=== PATIENT | male | born 1975 | race Hispanic/Latino ===

== ENCOUNTER 2023-11-17 20:37 | Emergency (ER) | payer OTHER ==
[~2023-11-17] VITALS: Ht 175.3 cm; Wt 70.8 kg
[2023-11-17 20:47] VITALS: BP 142/90; PULSE 73; RESP 18
== END 2023-11-18 02:44 | disposition left against medical advice (07) ==
LOC: EDH 20:37
DX: S01.81XA Laceration without foreign body of other part of head, initial encounter (principal); Z53.21 Procedure and treatment not carried out due to patient leaving prior to being seen by health care provider; X58.XXXA Exposure to other specified factors, initial encounter; Y93.89 Activity, other specified; Y92.89 Other specified places as the place of occurrence of the external cause; Y99.8 Other external cause status
CPT/HCPCS: 99281

== ENCOUNTER 2024-04-19 23:25 | Emergency (ER) | payer BC, OTHER ==
[~2024-04-19] VITALS: Ht 175.3 cm; Wt 67.1 kg
[2024-04-20 00:16] LABS: BILIRUBIN,URINE NEGATIVE (NEGATIVE); COLOR,URINE LIGHT-ORANGE (YELLOW); GLUCOSE, URINE (UA) NEGATIVE (NEGATIVE); KETONES,URINE 5 mg/dL (NEGATIVE); LEUKOCYTE ESTERASE ,URINE 500 Leu/uL (NEGATIVE); NITRATE,URINE 2+ (NEGATIVE); OCCULT BLOOD,URINE LARGE (NEGATIVE); PROTEIN,URINE 200 mg/dL (NEGATIVE); UROBILINOGEN,URINE 0.2 mg/dL (0.2-1.0)
[2024-04-20 00:27] LABS: APPEARANCE,URINE CLOUDY (CLEAR)
[2024-04-20 00:30] LABS: BACTERIA,URINE MOD /HPF (None Seen); MUCUS,URINE RARE LPF (None Seen); NON-SQUAMOUS EPITHELIAL CELL 8 /HPF (0-2); RBC,URINE TNTC /HPF (0-1); SQUAMOUS EPITHELIAL CELL,UR RARE /HPF (0-2); WBC,URINE TNTC /HPF (0-1)
[2024-04-20] MEDS ORDERED: PRED10TA23 PO (00:42)
[2024-04-20] MEDS ORDERED: LEVO750T68 PO (00:42)
[2024-04-20] MEDS ORDERED: NAPR375T6 PO (00:42)
[2024-04-20] MEDS: KETOROLAC 30MG VIAL (30MG/ML) IM ONE (01:22)
[2024-04-20 01:50] VITALS: BP 140/88; PULSE 92; RESP 16; O2SAT 99
== END 2024-04-20 01:55 | disposition home or self-care (01) ==
LOC: EDH 23:25
DX: N45.3 Epididymo-orchitis (principal); F41.9 Anxiety disorder, unspecified; F32.A Depression, unspecified; F20.9 Schizophrenia, unspecified; Z79.899 Other long term (current) drug therapy
CPT/HCPCS: 99284; 87077; 87088; 87186; 81001 ×2; 76870; 96372; J1885; 96374

== ENCOUNTER 2024-04-25 10:30 | Emergency (ER) | payer BC ==
[~2024-04-25] VITALS: Ht 175.3 cm; Wt 66.2 kg
[~2024-04-25 10:30] MED LIST: LEVO750T68 PO; NAPR375T6 PO; PRED10TA23 PO
[2024-04-25 10:35] VITALS: BP 116/81; PULSE 70; RESP 16
[2024-04-25 11:24] LABS: BASOPHILS # (AUTO) 0.04 K/uL (0.00-0.20); BASOPHILS % (AUTO) 0.4 % (0.0-5.0); EOSINOPHILS # (AUTO) 0.02 K/uL (0.00-0.70); EOSINOPHILS % (AUTO) 0.2 % (0.0-8.0); HEMATOCRIT 38.3 % (42-54); IMMATURE GRANULOCYTE ABSOLUTE 0.05 K/uL (0-1); LYMPHOCYTES # (AUTO) 1.2 K/uL (1.0-4.8); LYMPHOCYTES % (AUTO) 10.2 % (21.0-51.0); MEAN CORPUSCULAR HEMOGLOBIN 32.4 pg (27.0-33.0); MEAN CORPUSCULAR HGB CONC 34.7 g/dL (32.0-36.0); MEAN CORPUSCULAR VOLUME 93.4 fL (79-99); MONOCYTES # (AUTO) 1.1 K/uL (0.1-1.0); MONOCYTES % (AUTO) 9.3 % (3.0-13.0); NEUTROPHILS % (AUTO) 79.5 % (40.0-77.0); PLATELET COUNT (AUTO) 335 K/uL (130-400); RED CELL DISTRIBUTION WIDTH 12.5 % (11.0-15.5); WHITE BLOOD COUNT (AUTO) 11.3 K/uL (4.8-10.8)
[2024-04-25 11:34] LABS: CREATININE 0.7 mg/dL (0.5-1.3); POTASSIUM 3.9 mmol/L (3.5-5.1)
[2024-04-25] MEDS: KETOROLAC 60 MG VIAL (30MG/ML) IM ONE (12:15)
== END 2024-04-25 12:21 | disposition home or self-care (01) ==
LOC: EDH 10:30
DX: N45.3 Epididymo-orchitis (principal); F41.9 Anxiety disorder, unspecified; F20.9 Schizophrenia, unspecified
CPT/HCPCS: 99284; 80048; 85025; 36415; 96372; J1885

== ENCOUNTER 2024-05-15 08:52 | Emergency (ER) | payer BC ==
[~2024-05-15] VITALS: Ht 175.3 cm; Wt 72.6 kg
[2024-05-15] MEDS: DEXAMETHASONE SOD PHOSPHATE 4 MG/ML 1ML VIAL IVP ONE (09:36)
[2024-05-15] MEDS: ONDANSETRON 4MG INJ IV ONE (09:36)
[2024-05-15] MEDS: 0.9%NACL 1000ML 1,000 ML IV ONE (09:36)
[2024-05-15 09:37] LABS: APPEARANCE,URINE CLEAR (CLEAR); BILIRUBIN,URINE NEGATIVE (NEGATIVE); COLOR,URINE YELLOW (YELLOW); GLUCOSE, URINE (UA) NEGATIVE (NEGATIVE); KETONES,URINE NEGATIVE (NEGATIVE); LEUKOCYTE ESTERASE ,URINE 250 Leu/uL (NEGATIVE); NITRATE,URINE NEGATIVE (NEGATIVE); OCCULT BLOOD,URINE NEGATIVE (NEGATIVE); PROTEIN,URINE 20 mg/dL (NEGATIVE)
[2024-05-15] MEDS: MORPHINE 4 MG SYG IVP ONE (09:37)
[2024-05-15 09:40] LABS: BACTERIA,URINE RARE /HPF (None Seen); MUCUS,URINE RARE LPF (None Seen); SQUAMOUS EPITHELIAL CELL,UR RARE /HPF (0-2); WBC,URINE 51-100 /HPF (0-1)
[2024-05-15 09:42] LABS: AMPHET/METH SCREEN,URINE NEGATIVE (NEGATIVE); BARBITURATE SCREEN, URINE NEGATIVE (NEGATIVE); BENZODIAZEPINES SCREEN,URINE NEGATIVE (NEGATIVE); CANNABINOID SCREEN,URINE NEGATIVE (NEGATIVE); COCAINE SCREEN,URINE POSITIVE (NEGATIVE); OPIATE SCREEN,URINE NEGATIVE (NEGATIVE); PHENCYCLIDINE SCREEN,URINE NEGATIVE (NEGATIVE)
[2024-05-15 09:59] LABS: BASOPHILS # (AUTO) 0.05 K/uL (0.00-0.20); BASOPHILS % (AUTO) 0.9 % (0.0-5.0); EOSINOPHILS # (AUTO) 0.02 K/uL (0.00-0.70); EOSINOPHILS % (AUTO) 0.3 % (0.0-8.0); HEMATOCRIT 34.3 % (42-54); IMMATURE GRANULOCYTE ABSOLUTE 0.01 K/uL (0-1); LYMPHOCYTES # (AUTO) 2.1 K/uL (1.0-4.8); LYMPHOCYTES % (AUTO) 36.4 % (21.0-51.0); MEAN CORPUSCULAR HEMOGLOBIN 32.5 pg (27.0-33.0); MEAN CORPUSCULAR HGB CONC 34.7 g/dL (32.0-36.0); MEAN CORPUSCULAR VOLUME 93.7 fL (79-99); MONOCYTES # (AUTO) 0.5 K/uL (0.1-1.0); MONOCYTES % (AUTO) 9.3 % (3.0-13.0); NEUTROPHILS # (AUTO) 3.1 K/uL (1.8-7.7); NEUTROPHILS % (AUTO) 52.9 % (40.0-77.0); PLATELET COUNT (AUTO) 195 K/uL (130-400); RED BLOOD CELL COUNT(AUTO) 3.66 MIL/uL (4.50-6.20); RED CELL DISTRIBUTION WIDTH 13.7 % (11.0-15.5); WHITE BLOOD COUNT (AUTO) 5.8 K/uL (4.8-10.8)
[2024-05-15 10:16] LABS: CREATININE 0.7 mg/dL (0.5-1.3); POTASSIUM 3.2 mmol/L (3.5-5.1)
[2024-05-15 10:20] LABS: ALBUMIN 3.6 g/dL (3.5-5.0); BILIRUBIN,TOTAL 0.7 mg/dL (0.2-1.0); TOTAL PROTEIN, SERUM 7.7 g/dL (6.0-8.3)
[2024-05-15] MEDS ORDERED: CYCL10TA16 PO (11:22)
[2024-05-15] MEDS ORDERED: HYDR-4060 PO (11:22)
[2024-05-15] MEDS ORDERED: METH4TAB3 PO (11:22)
[2024-05-15 11:33] VITALS: BP 136/74; PULSE 70; RESP 16; O2SAT 98
== END 2024-05-15 11:48 | disposition home or self-care (01) ==
LOC: EDH 08:52
DX: M54.41 Lumbago with sciatica, right side (principal); M51.37 Other intervertebral disc degeneration, lumbosacral region; Z79.899 Other long term (current) drug therapy; Z98.890 Other specified postprocedural states
CPT/HCPCS: 99284; 96374; 72131; 96361; 96375 ×2; 80053; 80305; 83690; 85025; 87086; 36415; 81001 ×2; J1100; J7030; J2405; J2270

== ENCOUNTER 2024-06-06 21:48 | Emergency (ER) | payer BC ==
[~2024-06-06] VITALS: Ht 175.3 cm; Wt 68.0 kg
[~2024-06-06 21:48] MED LIST changes: +CYCL10TA16 PO; +HYDR-4060 PO; +METH4TAB3 PO
[2024-06-06 22:09] LABS: BASOPHILS # (AUTO) 0.03 K/uL (0.00-0.20); BASOPHILS % (AUTO) 0.5 % (0.0-5.0); EOSINOPHILS # (AUTO) 0.06 K/uL (0.00-0.70); EOSINOPHILS % (AUTO) 0.9 % (0.0-8.0); HEMATOCRIT 35.5 % (42-54); IMMATURE GRANULOCYTE ABSOLUTE 0.02 K/uL (0-1); MEAN CORPUSCULAR HEMOGLOBIN 32.5 pg (27.0-33.0); MEAN CORPUSCULAR HGB CONC 34.6 g/dL (32.0-36.0); MEAN CORPUSCULAR VOLUME 93.9 fL (79-99); MONOCYTES # (AUTO) 0.5 K/uL (0.1-1.0); MONOCYTES % (AUTO) 7.5 % (3.0-13.0); NEUTROPHILS # (AUTO) 3.7 K/uL (1.8-7.7); NEUTROPHILS % (AUTO) 58.8 % (40.0-77.0); PLATELET COUNT (AUTO) 198 K/uL (130-400); RED BLOOD CELL COUNT(AUTO) 3.78 MIL/uL (4.50-6.20); RED CELL DISTRIBUTION WIDTH 15.4 % (11.0-15.5); WHITE BLOOD COUNT (AUTO) 6.4 K/uL (4.8-10.8)
[2024-06-06] MEDS ORDERED: IOHEXOL 350 MG/ML 100ML INFUS..BTL IV ONE (22:11)
[2024-06-06 22:20] LABS: CREATININE 0.8 mg/dL (0.5-1.3); POTASSIUM 3.5 mmol/L (3.5-5.1)
[2024-06-06] MEDS: CEFAZOLIN SODIUM 2 GM VIAL IVPB STA (23:08)
[2024-06-06] MEDS: DIPH,PERTUSS(ACELL),TET VAC/PF 0.5 ML VIAL IM ONE (23:09)
[2024-06-07] MEDS: CEFTRIAXONE 1G VIAL IVPB ONE (00:36)
[2024-06-07 01:00] VITALS: BP 116/70; PULSE 72; RESP 16; O2SAT 98
== END 2024-06-07 01:30 | disposition short-term general hospital (02) ==
LOC: EDH 21:48
DX: S02.0XXA Fracture of vault of skull, initial encounter for closed fracture (principal); S01.81XA Laceration without foreign body of other part of head, initial encounter; Z79.899 Other long term (current) drug therapy; Z98.890 Other specified postprocedural states; W22.8XXA Striking against or struck by other objects, initial encounter; Y93.89 Activity, other specified; Y92.89 Other specified places as the place of occurrence of the external cause; Y99.8 Other external cause status
CPT/HCPCS: 99285; 70450; 96365; 71045; 80048; 85025; 36415; 90715; 72170; 72125; 71260; 74177; 90471; 12014; 96375; Q9967; J0690; J0696

== ENCOUNTER 2025-03-03 04:50 | Emergency (ER) | payer BC ==
[~2025-03-03] VITALS: Ht 170.2 cm; Wt 76.7 kg
[~2025-03-03 04:50] MED LIST changes: +NAPR-1505 PO; -NAPR375T6 PO
--- NOTE | 2025-03-03 05:12 | ERN ---
General Chief Complaint: Abdominal Pain Stated Complaint: ABD PAIN Time Seen by MD: 05:11 History of Present Illness Initial Comments It states that he has had abdominal pain and emesis for three days in addition to feeling sweaty with chills also accompanied by a stomach ache and diarrhea. His last drink of alcohol was four days ago. No fevers. He wonders if he had food poisoning. Timing/Duration: 1 week Allergies: Coded Allergies: No Known Allergies (Unverified Allergy, Unknown, 11/17/23) Home Meds Active Scripts Hydrocodone/Acetaminophen (Hydrocodon-Acetaminophen 5-325) 5 Mg-325 Mg Tablet, 1 EACH PO Q4HPRN PRN for PAIN, #10 TAB Prov:DEAN KEITH MD 05/15/24 Methylprednisolone (Medrol) 4 Mg Tab.ds.pk, 4 MG PO DAILY for DIRECTED, #1 PACK Prov:DEAN KEITH MD 05/15/24 Cyclobenzaprine HCl (Flexeril) 10 Mg Tab, 10 MG PO TID for muscle sstiffness, #30 TAB 0 Refills Prov:DEAN KEITH MD 05/15/24 Prednisone (Prednisone) 10 Mg Tab.ds.pk, 10 MG PO DAILY for 7 Days, #7 TAB Prov:GREGORIO ANTOINE MD 04/20/24 Naproxen (Naproxen) 375 Mg Tablet.dr, 375 MG PO BID for 10 Days, #20 TAB Prov:GREGORIO ANTOINE MD 04/20/24 Levofloxacin (Levaquin 750Mg Tabs) 750 Mg Tablet, 500 MG PO DAILY for 6 Days, #6 TAB Prov:GREGORIO ANTOINE MD 04/20/24 Past Medical History Past Medical History: Liver Disease, Other Medical History Other: HEPATITIS, SCIATIC Past Surgical History: Other Surgical History Other: RT KNEE SX Social History Social History: ETOH Constitutional: (+) chills, (+) diaphoresis, (+) malaise, (+) weakness, (+) other documentation EENTM: (+) eye pain, (+) blurred vision, (+) tearing Respiratory: (-) cough, (-) orthopnea, (-) short of breath, (-) stridor, (-) wheezing, (-) other documentation Cardiovascular: (-) chest pain, (-) edema, (-) palpitations, (-) syncope, (-) dyspnea on exertion, (-) other documentation Gastrointestinal/Abdominal: (+) nausea, (+) vomiting, (+) abdominal pain Musculoskeletal: (-) Neck pain, (-) back pain, (-) Flank Pain, (-) joint pain, (-) joint swelling, (-) muscle pain, (-) muscle stiffness, (-) gout, (-) other documentation Skin: (-) laceration, (-) contusion, (-) abrasion, (-) abscess, (-) rash, (-) change in color, (-) change in hair, (-) change in nails, (-) diaphoresis, (-) dryness, (-) other documentation Physical Exam Orientation: (+) alert Head/Face Trauma: No Eye: bilateral eye normal inspection, bilateral eye PERRL, bilateral eye EOMI Ear, Nose, Throat: (+) normal ENT inspection, (+) moist mucous membraine Neck: (+) normal inspection, (+) full range of motion, (+) no JVD Respiratory: (+) chest non-tender, (+) lungs clear Heart: (+) regular, (+) no gallop Vascular: (+) no edema, (+) normal peripheral pulse Gastrointestinal: (+) soft, (+) bowel sound present, (+) tender Results Laboratory and Microbiology Lab and Micro Result Laboratory Tests Test 03/03/25 05:14 White Blood Count 4.7 K/uL (4.8-10.8) L Red Blood Count 4.61 MIL/uL (4.50-6.20) Hemoglobin 14.2 g/dL (14.0-18.0) Hematocrit 41.7 % (42-54) L Mean Corpuscular Volume 90.5 fL (79-99) Mean Corpuscular Hemoglobin 30.8 pg (27.0-33.0) Mean Corpuscular Hemoglobin Concent 34.1 g/dL (32.0-36.0) Red Cell Distribution Width 14.0 % (11.0-15.5) Platelet Count 161 K/uL (130-400) Mean Platelet Volume 9.8 fL (7.5-10.5) Immature Granulocyte % (Auto) 0.2 % (0-1) Neutrophils (%) (Auto) 52.5 % (40.0-77.0) Lymphocytes (%) (Auto) 31.5 % (21.0-51.0) Monocytes (%) (Auto) 13.3 % (3.0-13.0) H Eosinophils (%) (Auto) 1.9 % (0.0-8.0) Basophils (%) (Auto) 0.6 % (0.0-5.0) Neutrophils # (Auto) 2.4 K/uL (1.8-7.7) Lymphocytes # (Auto) 1.5 K/uL (1.0-4.8) Monocytes # (Auto) 0.6 K/uL (0.1-1.0) Eosinophils # (Auto) 0.09 K/uL (0.00-0.70) Basophils # (Auto) 0.03 K/uL (0.00-0.20) Absolute Immature Granulocyte (auto 0.01 K/uL (0-1) Nucleated Red Blood Cells 0.0 % (0.0-0.19) Sodium Level 133 mmol/L (136-145) L Potassium Level 3.5 mmol/L (3.5-5.1) Chloride Level 97 mmol/L (101-111) L Carbon Dioxide Level 27 mmol/L (21-32) Blood Urea Nitrogen 12 mg/dL (7-18) Creatinine 0.7 mg/dL (0.5-1.3) Glomerular Filtration Rate Calc 112 mL/min (>90) Random Glucose 99 mg/dL (70-105) Total Calcium 9.0 mg/dL (8.5-10.1) Total Bilirubin 0.8 mg/dL (0.2-1.0) Aspartate Amino Transf (AST/SGOT) 506 U/L (10-37) H Alanine Aminotransferase (ALT/SGPT) 322 U/L (12-78) H Alkaline Phosphatase 97 U/L (50-136) Total Protein 7.9 g/dL (6.0-8.3) Albumin 3.7 g/dL (3.5-5.0) Amylase Level 85 U/L (25-115) Lipase 48 U/L (16-77) MDM Patient seems like he is most likely dehydrated or has a gastroenteritis. I will start by ordering some labs and resuscitating him with 2 L of lactated Ringer's. Patient's laboratory shows a slight pancytopenia white blood cell count of 4 his chemistry panel mild hyponatremia hypo kalemia mild mild elevation of lipase in definite elevation of transaminases. Patient says he feels much better after receiving the 2 L of fluid. And is ready to go home. We have ordered a blood alcohol level ED Course Orders Procedure Category Date Status Time Vital Signs Per CPOE 03/03/25 Transmitted Routine 05:15 Saline Lock Iv CPOE 03/03/25 Transmitted 05:15 Cbc With Differential LAB 03/03/25 Complete 05:15 Comprehensive LAB 03/03/25 Complete Metabolic Panel 05:15 Lipase LAB 03/03/25 Complete 05:15 Amylase LAB 03/03/25 Complete 05:15 Urinalysis Profile LAB 03/03/25 Logged 05:15 Lactated Ringers PHA 03/03/25 Complete 1000ml (Lactated 05:30 Ondansetron 4mg Inj PHA 03/03/25 Complete (Zofran 4mg Inj) 05:30 Lactated Ringers PHA 03/03/25 Complete 1000ml (Lactated 05:30 Lactated Ringers PHA 03/03/25 Complete 1000ml (Lactated 05:30 Ondansetron 4mg Inj PHA 03/03/25 Complete (Zofran 4mg Inj) 05:28 Alcohol, Blood LAB 03/03/25 Logged 06:23 Current Medications Medications (Trade) Dose Ordered Sig/Leonides Route PRN Reason Start Time Stop Time Status Last Admin Dose Admin Lactated Ringer's 1,000 ml @ 0 mls/hr Q0M IV 03/03/25 05:30 03/03/25 05:22 DC Lactated Ringer's 1,000 ml @ 0 mls/hr Q0M ONCE IV 03/03/25 05:30 03/03/25 05:41 DC 03/03/25 05:42 Lactated Ringer's/ Lactated Ringer's 2,000 ml @ 0 mls/hr Q0M IV 03/03/25 05:30 03/03/25 05:43 DC Ondansetron HCl (zoFRAN 4MG INJ) 4 mg ONCE ONCE IVP 03/03/25 05:30 03/03/25 05:41 DC 03/03/25 05:42 Ondansetron HCl (zoFRAN 4MG INJ) 4 mg STK-MED ONCE .ROUTE 03/03/25 05:28 03/03/25 05:28 DC Vital Signs Date Time Temp Pulse Resp B/P (MAP) Pulse Ox O2 Delivery O2 Flow Rate FiO2 03/03/25 05:14 98.4 60 16 130/90 99 Room Air* 0 21 03/03/25 04:51 97.9 62 16 137/89 96 Room Air DX & DISP Disposition: Discharge Departure Impression: Primary Impression: Gastroenteritis Additional Impression: Dehydration Condition: Stable Referrals: SELF,REFERRAL (PCP) JHONNY REYNA MD Mar 03, 2025 05:12
[2025-03-03 05:24] LABS: BASOPHILS # (AUTO) 0.03 K/uL (0.00-0.20); BASOPHILS % (AUTO) 0.6 % (0.0-5.0); EOSINOPHILS # (AUTO) 0.09 K/uL (0.00-0.70); EOSINOPHILS % (AUTO) 1.9 % (0.0-8.0); HEMATOCRIT 41.7 % (42-54); IMMATURE GRANULOCYTE ABSOLUTE 0.01 K/uL (0-1); LYMPHOCYTES # (AUTO) 1.5 K/uL (1.0-4.8); LYMPHOCYTES % (AUTO) 31.5 % (21.0-51.0); MEAN CORPUSCULAR HEMOGLOBIN 30.8 pg (27.0-33.0); MEAN CORPUSCULAR HGB CONC 34.1 g/dL (32.0-36.0); MEAN CORPUSCULAR VOLUME 90.5 fL (79-99); MONOCYTES # (AUTO) 0.6 K/uL (0.1-1.0); MONOCYTES % (AUTO) 13.3 % (3.0-13.0); NEUTROPHILS # (AUTO) 2.4 K/uL (1.8-7.7); NEUTROPHILS % (AUTO) 52.5 % (40.0-77.0); PLATELET COUNT (AUTO) 161 K/uL (130-400); RED BLOOD CELL COUNT(AUTO) 4.61 MIL/uL (4.50-6.20); WHITE BLOOD COUNT (AUTO) 4.7 K/uL (4.8-10.8)
[2025-03-03] MEDS ORDERED: LACTATED RINGERS 1000ML 1,000 ML IV SCH (05:30)
[2025-03-03] MEDS ORDERED: LACTATED RINGERS 1000ML 1,000 ML, LACTATED RINGERS 1000ML 1,000 ML IV SCH (05:30)
[2025-03-03 05:39] LABS: CREATININE 0.7 mg/dL (0.5-1.3); POTASSIUM 3.5 mmol/L (3.5-5.1)
[2025-03-03] MEDS: LACTATED RINGERS 1000ML 1,000 ML IV ONE (05:42)
[2025-03-03] MEDS: ondanSETRON 4MG INJ IVP ONE (05:42)
[2025-03-03] MEDS: ondanSETRON 4MG INJ ONE (05:43)
[2025-03-03 05:49] LABS: ALBUMIN 3.7 g/dL (3.5-5.0); BILIRUBIN,TOTAL 0.8 mg/dL (0.2-1.0); TOTAL PROTEIN, SERUM 7.9 g/dL (6.0-8.3)
[2025-03-03 06:55] VITALS: BP 137/88; PULSE 63; RESP 16; TEMP 98.4; O2SAT 100
== END 2025-03-03 07:03 | disposition home or self-care (01) ==
LOC: EDH 04:50
DX: K52.9 Noninfective gastroenteritis and colitis, unspecified (principal); E86.0 Dehydration; Z79.52 Long term (current) use of systemic steroids; Z79.899 Other long term (current) drug therapy; Z98.890 Other specified postprocedural states
CPT/HCPCS: 99284; 96374; 96361; 82150; 80053; 83690; 85025; 36415; J7120; J2405